=== PATIENT | female | born 1930 | race Caucasian/White ===

== ENCOUNTER → 2018-09-10 | Outpatient (CLI) | payer OTHER ==
[~2018-09-10] MED LIST: IOPAMIDOL (ISOVUE 370) 100 ML BTL IV ONE; IOPAMIDOL (ISOVUE-M 200) 20 ML VIAL ONE; LIDOCAINE 1% 300 MG/30 ML SDV ONE
[2018-09-10 09:14] LABS: INR 0.98 (0.83-1.16); PROTIME(PATIENT) 13.2 SEC (12.0-15.0)
== END ==
LOC: FIMAGING 08:15
PROVIDERS: ATTEND Psychiatry & Neurology Neurology
DX: R51 Headache (principal); M41.86 Other forms of scoliosis, lumbar region
CPT/HCPCS: Q9966; Q9967

== ENCOUNTER 2018-09-12 14:28 | Day surgery (SDC) | payer OTHER ==
[2018-09-12] MEDS ORDERED: IOPAMIDOL (ISOVUE-M 300) 15 ML VIAL ONE (15:48)
== END 2018-09-12 16:25 | disposition home or self-care (01) ==
LOC: FIMAGING 14:28
PROVIDERS: ATTEND Radiology Diagnostic Radiology
PROC: 3E0S3GC Introduction of Other Therapeutic Substance into Epidural Space, Percutaneous Approach (ICD-10-PCS; principal; 2018-09-12)
PROC: B01B1ZZ Fluoroscopy of Spinal Cord using Low Osmolar Contrast (ICD-10-PCS; principal; 2018-09-12)
DX: G97.1 Other reaction to spinal and lumbar puncture (principal)
CPT/HCPCS: Q9967

== ENCOUNTER → 2018-09-20 | Outpatient (CLI) | payer OTHER | LOC: FIMAGING 09:11 | PROVIDERS: ATTEND Psychiatry & Neurology Neurology | DX: R91.8 Other nonspecific abnormal finding of lung field (principal); K44.9 Diaphragmatic hernia without obstruction or gangrene; M48.04 Spinal stenosis, thoracic region; M48.061 Spinal stenosis, lumbar region without neurogenic claudication; R60.9 Edema, unspecified ==

== ENCOUNTER → 2018-09-24 | Outpatient (CLI) | payer OTHER ==
[~2018-09-24] MED LIST changes: -IOPAMIDOL (ISOVUE 370) 100 ML BTL IV ONE
[2018-09-24 08:22] LABS: INR 1.03 (0.83-1.16); PROTIME(PATIENT) 13.7 SEC (12.0-15.0)
== END ==
LOC: FIMAGING 07:26
PROVIDERS: ATTEND Psychiatry & Neurology Neurology
PROC: 3E0R3KZ Introduction of Other Diagnostic Substance into Spinal Canal, Percutaneous Approach (ICD-10-PCS; principal; 2018-09-24)
DX: G44.89 Other headache syndrome (principal); G96.0 Cerebrospinal fluid leak
CPT/HCPCS: 62270; 78650; A9548; Q9966

== ENCOUNTER 2018-09-27 08:59 | Emergency (ER) | payer OTHER ==
--- NOTE | 2018-09-27 09:06 | EDPHY ---
H & P Time Seen by Provider: 09/27/18 09:06 HPI/ROS: HPI: This is an 88-year-old female who presents with Chief Complaint: Headache, head pressure Location: Head Quality: Pain Duration: 4 weeks Signs and Symptoms: no fever, no nausea, no vomiting, no photophobia, no noise sensitivity, no neck stiffness, no ear pain, no tinnitus, no nasal congestion, no sinus pressure, no weakness, no radiation, no aura, no dizziness, no ataxia, no speech difficulties Timing: Acute daily Severity: Moderate Context: Patient presents accompanied by her daughter who gives the majority of history and is in direct contact via cell phone with Dr. Gaurav Wayne. She patient presents with 4 week history of dull frontal headache that has been diagnosed as a low-pressure headache. Headache is improved when she is lying flat. Headache worsens when she stands up or changes positions. Chart review shows that on 09/20/2018 she has cervical, thoracic, lumbar MRI performed. Then on 09/24/2018 she had an LP performed that showed low opening pressure and CSF nuclear scan that showed no evidence of leak and a blood patch placed. She is being sent directly to the emergency room before 500 cc normal saline and 500 mg of caffeine over 2 hr with the intention of being discharged home and Neurology follow-up outpatient. Modifying Factors: See above Comment: ROS: A comprehensive 10 system review of systems is otherwise negative aside from elements mentioned in the history of present illness. MEDICAL/SURGICAL/SOCIAL HISTORY: Medical history: Hypertension, depression. Surgical history: Denies Social history: Never smoked. Family history noncontributory. CONSTITUTIONAL: Elderly, petite white female, nontoxic appearing, talkative, awake and alert, no obvious distress HEENT: Atraumatic and normocephalic, PERRL, EOMI. Nares patent; no rhinorrhea; no nasal mucosal edema. Tympanic membranes clear. Oropharynx clear, no exudate and moist pink mucosa. Airway patent. No lymphadenopathy. No meningismus. Cardiovascular: Normal S1/S2, regular rate, regular rhythm, without murmur rub or gallop. PULMONARY/CHEST: Symmetrical and nontender. Clear to auscultation bilaterally. Good air movement. No accessory muscle usage. ABDOMEN: Soft, nondistended, nontender, no rebound, no guarding, no peritoneal signs, no masses or organomegaly. No CVAT. EXTREMITIES: 2/2 pulses, strength 5/5, no deformities, no clubbing, no cyanosis or edema. NEUROLOGICAL: no focal neuro deficits. GCS 15. Cranial nerves 2-12 grossly intact. SKIN: Warm and dry, pallor, no erythema. no rash. Good capillary refill. Source: Patient, RN/MD, Old records Exam Limitations: No limitations - Medical/Surgical History Other PMH: HTN, depression - Social History Smoking Status: Never smoked Constitutional: Initial Vital Signs Temperature (C) 36.4 C 09/27/18 09:09 Heart Rate 93 09/27/18 09:09 Respiratory Rate 16 09/27/18 09:09 Blood Pressure 128/63 H 09/27/18 09:09 O2 Sat (%) 97 09/27/18 09:09 O2 Delivery Mode Room Air Allergies/Adverse Reactions: codeine Allergy (Verified 09/23/18 09:42) Penicillins Allergy (Verified 09/23/18 09:42) Home Medications: Medication Instructions Recorded Verapamil [Calan 120MG (*)] 120 mg PO DAILY 11/03/15 busPIRone [Buspar (*)] 15 mg PO BID 11/03/15 Prilosec 20 mg PO DAILY AT 6PM 09/08/18 Temazepam 15 mg PO HS 09/08/18 buPROPion 100 mg PO DAILY 09/08/18 traZODONE 50MG (*) 50 mg PO HS 09/08/18 Medical Decision Making ED Course/Re-evaluation: Vital signs reviewed and stable upon arrival. Placed on cardiac exercise physiologist. IV access and no laboratory studies ordered. Patient given 500 cc normal saline and 500 mg of caffeine over 2 hr per request by Dr. Wayne. 1150: Reassessed patient who reports mild relief from infusion. Offered patient admission and she and her daughter have politely declined and wished to follow up outpatient with Dr. Wayne. Vital signs are stable at discharge. This patient was seen under the supervision of my secondary supervising physician. I evaluated care for this patient with attending. Discussed this patient with Dr. Gibbs who did not see the patient. Differential Diagnosis: Differential diagnosis is low-pressure headache - Data Points Medications Given: Discontinued Medications Caffeine/Sodium Benzoate 500 (mg/ Sodium Chloride) 1,002 mls @ 1,002 mls/hr IV ONCE ONE Stop: 09/27/18 10:16 Last Admin: 09/27/18 10:14 Dose: 1,002 mls Sodium Chloride (Ns) 500 mls @ 250 mls/hr IV EDNOW ONE PRN Reason: Protocol Stop: 09/27/18 11:15 Last Admin: 09/27/18 09:39 Dose: 500 mls Departure - Departure Disposition: Home, Routine, Self-Care Clinical Impression: Headache due to low cerebrospinal fluid pressure Condition: Good Instructions: General Headache (ED) Additional Instructions: Please follow-up with Dr. Wayne outpatient. Return to the ER immediately if you have progressive headaches, neurologic deficits, gait abnormality, visual disturbance, slurred speech, or any other symptom that concerns you. Referrals: Gala Yee MD [Primary Care Provider] - As per Instructions Gaurav Wayne MD [Medical Doctor] - As per Instructions
[2018-09-27] MEDS ORDERED: NS 500 ML IV ONE (09:16)
[2018-09-27] MEDS ORDERED: CAFFEINE/SODIUM BENZOATE 500 MG in NS 1,000 ML IV ONE (09:17)
[2018-09-27 11:58] VITALS: BP 122/70
== END 2018-09-27 11:58 | disposition home or self-care (01) ==
DX: R51 Headache (principal); R83.6 Abnormal cytological findings in cerebrospinal fluid; I10 Essential (primary) hypertension; E86.9 Volume depletion, unspecified
CPT/HCPCS: 96365

== ENCOUNTER 2018-09-30 11:58 | Day surgery (SDC) | payer OTHER ==
[2018-09-30 14:43] VITALS: BP 161/78
== END 2018-09-30 14:35 | disposition home or self-care (01) ==
LOC: FIMAGING 11:58
PROVIDERS: ATTEND Radiology Diagnostic Radiology
DX: G43.719 Chronic migraine without aura, intractable, without status migrainosus (principal); M54.16 Radiculopathy, lumbar region

== ENCOUNTER 2018-10-14 10:33 | Day surgery (SDC) | payer OTHER ==
[2018-10-14] MEDS ORDERED: IOPAMIDOL (ISOVUE-M 300) 15 ML VIAL ONE ×2 (11:19→14:33)
== END 2018-10-14 13:40 | disposition home or self-care (01) ==
LOC: FIMAGING 10:33
PROVIDERS: ATTEND Psychiatry & Neurology Neurology
PROC: BR191ZZ Fluoroscopy of Lumbar Spine using Low Osmolar Contrast (ICD-10-PCS; principal; 2018-10-14)
PROC: 3E0S3GC Introduction of Other Therapeutic Substance into Epidural Space, Percutaneous Approach (ICD-10-PCS; principal; 2018-10-14)
DX: G44.52 New daily persistent headache (NDPH) (principal); G44.89 Other headache syndrome
CPT/HCPCS: Q9967

== ENCOUNTER 2018-10-24 09:38 | Day surgery (SDC) | payer OTHER ==
[2018-10-24 10:16] VITALS: BP 132/75
[2018-10-24] MEDS ORDERED: IOPAMIDOL (ISOVUE-300) 100 ML BTL ONE (13:47)
[2018-10-24] MEDS ORDERED: IOPAMIDOL (ISOVUE-M 300) 15 ML VIAL ONE (13:49)
== END 2018-10-24 12:30 | disposition home or self-care (01) ==
LOC: FIMAGING 09:38
PROVIDERS: ATTEND Radiology Diagnostic Radiology
DX: G44.89 Other headache syndrome (principal)
CPT/HCPCS: Q9967

== ENCOUNTER → 2018-10-29 | Outpatient (CLI) | payer OTHER ==
[~2018-10-29] MED LIST changes: +GADOBUTROL 10 ML VIAL IVP ONE; -IOPAMIDOL (ISOVUE-M 200) 20 ML VIAL ONE; -LIDOCAINE 1% 300 MG/30 ML SDV ONE
== END ==
LOC: FIMAGING 06:45
PROVIDERS: ATTEND Psychiatry & Neurology Neurology
DX: G44.89 Other headache syndrome (principal)
CPT/HCPCS: 70553; A9585; 82565-PO

== ENCOUNTER → 2018-12-22 | Outpatient (CLI) | payer OTHER | LOC: FIMAGING 09:23 | PROVIDERS: ATTEND Internal Medicine Pulmonary Disease | DX: R91.1 Solitary pulmonary nodule (principal) ==